=== PATIENT | female | born 1955 | race Caucasian/White ===

== ENCOUNTER → 2017-09-07 | Outpatient (CLI) | payer MEDICAID ==
[~2017-09-07] MED LIST: ALBU17AE23 IH; ALPR0.5T72 PO; AMLO10TA2 PO; ASP81TEC PO; ATOR80TA76 PO; BUSP10TA95 PO; CLON0.2T PO; CYCL10TA9 PO; DEXL60CA5 PO; DIAZ2TAB2 PO; DIAZ5TAB3 PO; DICL100G20 TOP; ESTR10TA VG; EZET1TAB44 PO; FURO20TA4 PO; GABA600T2 PO; HCT25T PO; HYDR-3720 PO; HYDR-3820 PO; IBUP-30 PO; METO-370 PO; MORP15TA8 PO; MORP30CA16 PO; NF-DICLTB PO; NITR100C PO; PANT40TA2 PO; PARO20TA5 PO; POTA-51 PO; POTA20TA15 PO; POTA99TA7 PO; PREN-93 PO; PROM12.59 PO; RANI150T90 PO; RANI300T4 PO; RISP1TAB94 PO; ROPI1TAB2 PO; SCR1T PO; SUCR1TAB36 PO; TRAZ150T72 PO; TRAZ50CO PO; TRIA1CAP4 PO; [UNRECOGNIZED DRUG - CODE] PO
== END ==
LOC: RAD 10:50
PROVIDERS: ATTEND Nurse Practitioner
DX: Z12.31 Encounter for screening mammogram for malignant neoplasm of breast (principal)
CPT/HCPCS: 77067

== ENCOUNTER → 2018-09-09 | Outpatient (CLI) | payer MEDICAID ==
[~2018-09-09] MED LIST changes: -AMLO10TA2 PO; +AMLO10TA7 PO; -GABA600T2 PO; +GBPN600T PO
--- NOTE | 2018-09-09 17:23 | Diagnostic Imaging Report ---
INDICATION: Routine screening. COMPARISON: Prior mammogram from 09/07/2017 and 09/11/2015. EXAMINATION: 2D and 3D bilateral screening mammography was performed with CAD. The current study was also evaluated with a Computer Aided Detection (CAD) system. FINDINGS: Scattered fibroglandular densities are identified, bilaterally. The parenchymal pattern is stable. No dominant mass or malignant appearing microcalcifications are seen. Axillae are unremarkable. IMPRESSION: No mammographic features suspicious for malignancy are identified. ACR BI-RADS Category 1: Negative. Result letter will be mailed to the patient. Note: At least 10% of breast cancer is not imaged by mammography. Dictated on workstation # [id number]
== END ==
LOC: RAD 09:07
PROVIDERS: ATTEND Nurse Practitioner
DX: Z12.31 Encounter for screening mammogram for malignant neoplasm of breast (principal)
CPT/HCPCS: 77067